=== PATIENT | male | born 1940 | race Caucasian/White ===

== ENCOUNTER 2025-04-15 06:19 | Day surgery (SDC) | payer OTHER, SELFPAY | END 2025-04-15 16:13 | disposition home or self-care (01) | LOC: GI 06:19 | PROVIDERS: ATTENDING PHYSICIAN Specialist | DX: Z12.11 Encounter for screening for malignant neoplasm of colon (principal); K57.30 Diverticulosis of large intestine without perforation or abscess without bleeding; K64.8 Other hemorrhoids; D12.3 Benign neoplasm of transverse colon; Z86.0101 Personal history of adenomatous and serrated colon polyps | CPT/HCPCS: 45385; 88305 ==